=== PATIENT | female | born 1940 | race Caucasian/White ===

== ENCOUNTER → 2018-01-13 12:18 | Outpatient (CLI) | payer MEDICARE, OTHER, SELFPAY ==
--- NOTE | 2018-01-13 12:22 | MRI_ITS ---
STUDY: MRI BRAIN WITH AND WITHOUT CONTRAST REASON FOR EXAM: Female, 77 years old. Dizziness history of mastoid surgery as child. TECHNIQUE: Standardized multiplanar fat and water weighted pulse sequences were obtained. 6 ml of Gadavist contrast material was administered intravenously for the contrast portion of the examination. COMPARISON: None. FINDINGS: Mild atrophy and periventricular white matter ischemic changes without evidence for acute infarct.. There are foci of restricted diffusion in the cerebellar hemispheres larger on the left which may be consistent with acute ischemic changes. There is also a small focus of chronic ischemia within the right cerebellar hemisphere Normal bilateral basal ganglia. Normal thalami. There is no extra-axial fluid accumulation. Normal flow voids within the major intracranial circulation suggesting patency by spin echo criteria. Normal venous enhancement. There is no enhancing intra-axial or extra-axial abnormality. Normal sella turcica, pituitary gland, infundibular stalk, optic chiasm and hypothalamus. Normal tectal plate and pineal gland. Normal midbrain, augusto and medulla. Normal cerebellum. Normal basal cisterns. Normal bilateral temporal bones. Normal bilateral internal auditory canals. No demonstrated orbital abnormality, within the constraints of a routine brain study. Normal visualized paranasal sinuses. Normal calvarium and skull base. Normal visualized soft tissue structures. Normal visualized upper cervical spine. 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 No enhancing lesions. Specifically no evidence for acoustic or vestibular schwannoma Electronically Signed: Italo Haynes MD at 16:12 EDT , Service support ,
[2018-01-13 13:10] LABS: CREATININE FINGERSTICK < 0.6 mg/dL (0.55-1.02); EGFR FINGERSTICK > 60.0000 mL/min (>60)
== END ==
PROVIDERS: Visit Provider Otolaryngology
DX: R42 Dizziness and giddiness (principal)
CPT/HCPCS: 70553; A9585

== ENCOUNTER → 2019-12-15 11:13 | Outpatient (CLI) | payer MEDICARE, OTHER, SELFPAY ==
--- NOTE | 2019-12-15 11:19 | MRI_ITS ---
STUDY: MRA OF THE HEAD WITHOUT CONTRAST REASON FOR EXAM: Female, 79 years old. cerebral aneurysm TECHNIQUE: 3-D uwnl-bo-vhznct (TOF) imaging was performed with MIPs. The study was performed unenhanced. COMPARISON: None. FINDINGS: Normal bilateral petrous carotid arteries. Normal right cavernous carotid artery with a normal supraclinoid bifurcation. Normal left cavernous carotid artery with a normal supraclinoid bifurcation. Normal right A1 segments of the anterior cerebral artery. Normal left A1 segments of the anterior cerebral artery. Normal intact anterior communicating artery (ACOM). Normal bilateral A2 segments of the anterior cerebral arteries. Normal right M1 and M2 segments of the middle cerebral arteries, with a normal M1 bifurcation. Normal left M1 and M2 segments of the middle cerebral arteries, with a normal M1 bifurcation. Posterior communicating arteries not visualized consistent with normal variant. Normal bilateral vertebral arteries. There appears to be mild aneurysmal dilatation of the basilar tip measuring approximately 3.5 mm... The visualized bilateral superior cerebellar (SCA) arteries are normal. Normal bilateral P1, P2 and visualized P3 segments of the posterior cerebral arteries. There is no demonstrated aneurysm of the [place] of [place]. There is no major vessel occlusion or hemodynamically significant stenosis. There is no demonstrated abnormality of the visualized brain. 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 Electronically Signed: Italo Haynes MD at 23:07 EDT , Service support ,
[2019-12-15 11:38] VITALS: BMI 22.6
--- NOTE | 2019-12-15 12:21 | NURSING ---
PACER NURSE states patient is cleared and ready to go, pt tolerated MRI well, ambulatory.
== END ==
DX: I67.1 Cerebral aneurysm, nonruptured (principal)
CPT/HCPCS: 70544

== ENCOUNTER → 2020-11-28 08:07 | Outpatient (CLI) | payer MEDICARE, OTHER, SELFPAY ==
[2019-12-15 11:38] VITALS: BMI 22.6
--- NOTE | 2020-11-28 08:24 | MRI_ITS ---
We are attempting to reach an attending provider to discuss findings. An addendum with communication details will be sent when the communication is complete. STUDY: MRA OF THE HEAD WITHOUT CONTRAST REASON FOR EXAM: Female, 80 years old. ANEURYSM TECHNIQUE: 3-D fxvm-wr-gxahhy (TOF) imaging was performed with MIPs. The study was performed unenhanced. COMPARISON: MRA head without contrast 12/15/2019. FINDINGS: Normal bilateral petrous carotid arteries. Normal right cavernous carotid artery with a normal supraclinoid bifurcation. Normal left cavernous carotid artery with a normal supraclinoid bifurcation. Normal right A1 segment of the anterior cerebral artery. Normal left A1 segment of the anterior cerebral artery. 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 It is along the pathway of the left A1 segment. The aneurysmal sac is directed superiorly. This is unchanged. Normal bilateral A2 segments of the anterior cerebral arteries. Normal right M1 and M2 segments of the middle cerebral arteries, with a normal M1 bifurcation. Normal left M1 and M2 segments of the middle cerebral arteries, with a normal M1 bifurcation. No visible right posterior communicating artery (PCOM). No visible left posterior communicating artery (PCOM). Normal bilateral vertebral arteries. The right is slightly more dominant. Again noted is the saccular aneurysm involving the basilar apex measuring 4.2 mm long with a 3.2 mm white fundus and a 3 mm wide neck. The aneurysmal sac is directed superiorly. The right superior cerebellar artery arises off the P1 segment. The left superior cerebellar artery also arises off the left P1 segment. This is a developmental variation of normal. The visualized bilateral superior cerebellar (SCA) arteries are normal. Normal bilateral P1, P2 and visualized P3 segments of the posterior cerebral arteries. There is no demonstrated aneurysm of the [place] of [place]. There is no major vessel occlusion or hemodynamically significant stenosis. There is no demonstrated abnormality of the visualized brain. MRI/MRA Head ONLY without Contrast IMPRESSION: 1. 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 This is unchanged. 2. 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 This is a developmental variation of normal. 3. 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 The aneurysmal sac is directed superiorly and unchanged. Electronically Signed: Aelxander Maldonado MD at 15:58 EDT , Service support ,
[2020-11-28 08:55] VITALS: BP 160/66; PULSE 80; RESP 16
[2020-11-28 09:05] VITALS: BP 171/61; PULSE 86; RESP 16; O2SAT 94
== END ==
PROVIDERS: PCP Family Medicine
DX: I67.1 Cerebral aneurysm, nonruptured (principal)
CPT/HCPCS: 70544

== ENCOUNTER → 2022-11-19 | Outpatient (CLI) | payer MEDICARE, OTHER, SELFPAY ==
--- NOTE | 2022-11-19 11:31 | MRI_ITS ---
STUDY: MRA OF THE HEAD WITHOUT CONTRAST REASON FOR EXAM: Female, 82 years old. CEREBRAL ANEURYSM TECHNIQUE: 3-D szqv-bo-xrmrze (TOF) imaging was performed with MIPs. The study was performed unenhanced. COMPARISON: MRA of the brain dated December 15, 2019. MRI of the brain dated November 19, 2022 FINDINGS: Normal bilateral petrous carotid arteries. There is atheromatous plaque formation of the right cavernous carotid artery, with a mild stenosis (less than 50%). 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 Normal right A1 segments of the anterior cerebral artery. Normal left A1 segments of the anterior cerebral artery. Normal intact anterior communicating artery (ACOM). Normal bilateral A2 segments of the anterior cerebral arteries. Normal right M1 and M2 segments of the middle cerebral arteries, with a normal M1 bifurcation. There is irregularity of the left M1 and M2 branches with minimal luminal narrowing, suggesting atherosclerotic plaque formation, without an occlusion. Normal right posterior communicating artery (PCOM). There is non-visualization of the left posterior communicating artery (PCOM). Redemonstration of mild atherosclerotic plaque and stenosis of the intracranial aspect of the right vertebral artery. Normal left vertebral artery. Redemonstration of origin/tip of the basilar artery aneurysm maximally measuring 4.3 mm on the axial images and 3.5 mm on the reconstructions. These measurements are unchanged from the prior study. Normal remaining aspects of the basilar artery. The visualized bilateral superior cerebellar (SCA) arteries are normal. Normal bilateral P1, P2 and visualized P3 segments of the posterior cerebral arteries. There is no demonstrated aneurysm of the [place] of [place]. There is no major vessel occlusion or hemodynamically significant stenosis. MRI/MRA Head ONLY without Contrast IMPRESSION: 1. Redemonstration of origin/tip of the basilar artery aneurysm maximally measuring 4.3 mm on the axial images and 3.5 mm on the reconstructions. These measurements are unchanged from the prior study. Normal remaining aspects of the basilar artery. Electronically Signed: Ney Brandon MD at 14:50 EDT ,
--- NOTE | 2022-11-19 11:31 | MRI_ITS ---
STUDY: MRI BRAIN WITHOUT CONTRAST REASON FOR EXAM: Female, 82 years old. ISCHEMIC STROKE TECHNIQUE: Standardized multiplanar fat and water weighted pulse sequences were obtained. COMPARISON: MRI of the brain dated January 13, 2018 FINDINGS: There is asymmetry of the ventricles consistent with an anatomic variant. There are a limited number of small white matter hyperintensities, distributed throughout the deep white matter tracts of the cerebral hemispheres, consistent with mild chronic white matter ischemic changes. There is no evidence for recent intracranial ischemia or other cause of cytotoxic edema on diffusion weighted imaging (DWI). Normal T2* images of the brain without demonstrated susceptibility artifact. There is no demonstrated hemosiderin stain. Normal bilateral basal ganglia. Normal thalami. There is no extra-axial fluid accumulation. Normal flow voids within the major intracranial circulation suggesting patency by spin echo criteria. Redemonstration of a small simple benign cyst in the central aspect of the pituitary gland. Normal sella turcica, infundibular stalk, optic chiasm and hypothalamus. Normal tectal plate and pineal gland. Normal midbrain, augusto and medulla. Redemonstration of small old lacunar infarcts in the central aspect of the right cerebellar lobe. Normal basal cisterns. Normal bilateral temporal bones. Normal bilateral internal auditory canals. No demonstrated orbital abnormality, within the constraints of a routine brain study. Normal visualized paranasal sinuses. Normal calvarium and skull base. Normal visualized soft tissue structures. Normal visualized upper cervical spine. MRI/Brain without Contrast IMPRESSION: 1. Involutional changes of the brain, as described above. 2. No evidence of acute infarction or intracranial hemorrhage. 3. Redemonstration of small old lacunar infarcts in the central aspect of the right cerebellar lobe. Electronically Signed: Ney Brandon MD at 11:49 EDT ,
[2022-11-19 11:55] VITALS: PULSE 72
[2022-11-19 12:04] VITALS: BP 155/57; PULSE 100; RESP 16
[2022-11-19 12:19] VITALS: BP 176/74; PULSE 100
[2022-11-19 12:34] VITALS: BP 169/73; PULSE 100
[2022-11-19 12:45] VITALS: PULSE 74
== END | disposition home or self-care (01) ==
PROVIDERS: PCP Family Medicine
DX: R42 Dizziness and giddiness (principal); I63.9 Cerebral infarction, unspecified; I67.1 Cerebral aneurysm, nonruptured
CPT/HCPCS: 70544; 70551